=== PATIENT | female | born 2000 | race Two or more races ===

== ENCOUNTER 2025-04-09 18:19 | Emergency (ER) | payer SELFPAY ==
[2025-04-09 18:30] VITALS: BP 144/104; PULSE 105; TEMP 37.1; O2SAT 98; BMI 28.3
--- NOTE | 2025-04-09 18:50 | ED_ITS ---
HPI HPI - General Adult General Chief complaint: OB/Uterine Contractions Stated complaint: POSS Time Seen by Provider: 04/09/25 18:36 Source: patient Mode of arrival: walk-in Limitations: no limitations History of Present Illness HPI narrative: Patient presents with multiple tests some positive some negative her last period started on the . She is concerned about she does have some frequent urination and discolored urine. Denies any urinary bleeding, vaginal pain, rectal bleeding. Notes she does have some bleeding when wiping after urinating. Denies any abdominal pain, nausea, vomiting, back pain. Patient amatory emergency room Onset (ago): day(s) (1) Related Data Previous Rx's ?Medication ?Instructions ?Recorded cephalexin 500 mg capsule 500 mg PO BID 10 days #20 ca ps 04/09/25 Allergies Allergy/AdvReac Type Severity Reaction Status Date / Time No Known Drug Allergies Allergy Verified 04/09/25 18:35 Review of Systems ROS Status of ROS 10 or more systems reviewed and unremark able except as noted in history and below Constitutional Denies: fever or chills Ears, nose, mouth, and throat Denies: throat pain Cardiovascular Denies: chest pain Respiratory Denies: cough Gastrointestinal Denies: abdominal pain or vomiting Genitourinary Reports: urinary frequency; Denies: pelvic pain Musculoskeletal Denies: back pain Integumentary/Breast Denies: rash Neurological Denies: headache Allergic/Immunologic Denies: hives PFSH PFSH Social History Little interest or pleasure in doing things: not at all Feeling down, depressed, or hopeless: not at all Exam Constitutional Vital Signs, click to edit/add: Last Vital Signs Temp 98.7 F 04/09/25 18:30 Pulse 105 H 04/09/25 18:30 Resp 16 04/09/25 18:30 BP 144/104 H 04/09/25 18:30 Pulse Ox 98 04/09/25 18:30 O2 Del Method Room Air 04/09/25 18:30 Documenting provider has reviewed patient's vital signs: yes Common normals: no apparent distress Exam limitations: no altered mental status General appearance: cooperative and anxious Orientation/consciousness: Yes awake HENMT Common normals: normocephalic Eye Common normals: PERRL Neck & C-Spine Common normals: full ROM and supple Respiratory Common normals: normal respiratory effort and clear to auscultation bilaterally Cardio Common normals: regular rate, regular rhythm, S1 normal heart sound and S2 normal heart sound GI Common normals: Normal to inspection, nondistended, normoactive bowel sounds present and non-tender Back & Pelvis Common normals: no CVA tenderness and thoraco-lumbar ROM normal Extremity Common normals: normal to inspection and full ROM Psych Common normals: mental status grossly normal and thought process normal Course Vital Signs Vital signs: Vital Signs Temperature 98.7 F 04/09/25 18:30 Pulse Rate 105 H 04/09/25 18:30 Respiratory Rate 16 04/09/25 18:30 Blood Pressure 144/104 H 04/09/25 18:30 Pulse Oximetry 98 04/09/25 18:30 Oxygen Delivery Method Room Air 04/09/25 18:30 Temperature 98.7 F 04/09/25 18:30 Pulse Rate 105 H 04/09/25 18:30 Respiratory Rate 16 04/09/25 18:30 Blood Pressure 144/104 H 04/09/25 18:30 Pulse Oximetry 98 04/09/25 18:30 Oxygen Delivery Method Room Air 04/09/25 18:30 Medical Decision Making MDM Narrative Medical decision making narrative: Patient concerned with multiple positive negative test we did discuss that letting them sit they can turn positive. We also discussed an early that a minimum level of hCG is required to make them a positive. Will add a blood hCG serum test. Will also add urinalysis for possible infectious process Patient negative hCG she is to follow-up with primary care and [employer] discontinue smoking will also treat for UTI Keflex 500 twice daily. She is to drink more water. Discussed plan of care patient agreeable plan of care. Differential Diagnosis Differential Diagnosis: /UTI. Lab Data Labs: Lab Results 04/09/25 04/09/25 Range/Units 18:53 19:02 Serum HCG, Qual Negative (NEGATIVE) Urine Color Dk. yellow (YELLOW) Urine Clarity Cloudy A (CLEAR) Urine pH 5.5 (5.0-9.0) Ur Specific [place] >=1.030 A (1.005-1.025) Urine Protein 30 A (NEG/TRACE) mg/dL Urine Glucose (UA) Negative (NEGATIVE) mg/dL Urine Ketones Trace A (NEGATIVE) mg/dL Urine Occult Blood Large A (NEGATIVE) Urine Nitrite Negative (NEGATIVE) Urine Bilirubin Moderate A (NEGATIVE) Urine Urobilinogen 1.0 (0.2-1.0) EU/dL Ur Leukocyte Esterase Trace A (NEGATIVE) Urine RBC 0-2 (0-2) #/HPF Urine WBC 10-20 A (NONE SEEN) #/HPF Ur Squamous Epith Cells Many A (NONE/RARE) #/LPF Urine Crystals None seen (None Seen) #/HPF Urine Bacteria Large A (NONE SEEN) #/HPF Urine Casts Seen A (NONE SEEN) #/LPF Hyaline Casts Few Urine Mucus Large A (NONE SEEN) Ur Culture Indicated? [facility] [place] Discharge Plan Discharge Chief Complaint: OB/Uterine Contractions Clinical Impression: UTI (urinary tract infection) Qualifiers: Urinary tract infection type: site unspecified Hematuria presence: with hematuria Qualified Code(s): N39.0 - Urinary tract infection, site not specified Patient Disposition: Home, Self-Care Time of Disposition Decision: 19:47 Mode of Transportation: Private Vehicle Prescriptions / Home Meds: New cephalexin 500 mg capsule 500 mg PO BID 10 Days Qty: 20 0RF Print Language: [place] Instructions: Urinary Tract Infection in Women (DC) Additional Instructions: Discontinue smoking. Follow-up with primary care. Return to ER if any symptoms worsen or new symptoms well. Drink plenty of fluids. Referrals: Physician,Non-Staff, [Primary Care Provider] - 1 week
[2025-04-09 19:02] LABS: Glucose Urine UA NEGATIVE (NEGATIVE)
[2025-04-09 19:09] LABS: Cast Seen? SEEN #/LPF (NONE SEEN); Crystals Seen? None Seen #/HPF (None Seen); Urine Culture Indicated YES-FRMC
[2025-04-09 19:54] VITALS: BP 140/82
== END 2025-04-09 19:55 | disposition home or self-care (01) ==
PROVIDERS: Physician Assistant; Emergency Provider Emergency Medicine
DX: N39.0 Urinary tract infection, site not specified (principal); R31.9 Hematuria, unspecified
CPT/HCPCS: 36415; 81001; 84703; 87086; 99284